=== PATIENT | female | born 1960 | race Caucasian/White ===

== ENCOUNTER 2020-03-22 18:51 | Inpatient (IN) | payer MEDICARE, OTHER ==
[2020-03-22] MEDS ORDERED: ONDANSETRON 4 MG/2 ML VIAL IVP STA (19:25)
--- NOTE | 2020-03-22 19:29 | ED ---
Seizure HPI <Colten Mae - Last Filed: 03/22/20 22:10> - General Source: patient Mode of arrival: ambulatory Limitations: no limitations <Duke Lockwood - Last Filed: 03/22/20 23:59> - General Chief Complaint: Seizure Stated Complaint: seizure Time Seen by Provider: 03/22/20 19:16 - History of Present Illness Initial Comments: 59-year-old female with history of epilepsy presenting to the emergency department the chief complaint of a seizure. Patient states she takes Keppra for seizures and has been taking them regularly, as prescribed. He states today she was at her friend's house when she developed a tonic-clonic seizure of unknown time. Patient did have a postictal state but no biting of the tongue or urinary incontinence. EMS was contacted and patient was brought to the ED. Laron wallace states it is typical for her to have nausea after having seizures. She did have one episode of vomiting in the ED. Patient believes she had a seizure because she has not been taking her amlodipine. Patient states she has not had imaging of the head in quite some time. (Duke Lockwood) - Related Data Home Medications Medication Instructions Recorded Confirmed amLODIPine [Norvasc] 10 mg PO DAILY 12/19/15 03/22/20 levETIRAcetam [Keppra] 500 mg PO Q12H 12/19/15 03/22/20 Naproxen Sodium [Aleve] 440 mg PO DAILY 03/22/20 03/22/20 Allergies Allergy/AdvReac Type Severity Reaction Status Date / Time No Known Allergies Allergy Verified 03/22/20 19:19 Review of Systems ROS Other: All systems not noted in ROS Statement are negative. <Colten Mae - Last Filed: 03/22/20 22:10> ROS Other: All systems not noted in ROS Statement are negative. <Duke Lockwood - Last Filed: 03/22/20 23:59> ROS Statement: Those systems with pertinent positive or pertinent negative responses have been documented in the HPI. Past Medical History Past Medical History: Hyperlipidemia, Hypertension, Seizure Disorder Additional Past Medical History / Comment(s): COUPLE YEARS AGO HAD ? SEIZURE BUT WAS NEVER STARTED ON ANY MEDS History of Any Multi-Drug Resistant Organisms: None Reported Past Surgical History: No Surgical Hx Reported Additional Past Anesthesia/Blood Transfusion Reaction / Comment(s): HAD AA WHEN TEETH PULLED- DENIES ANY PROBLEM WITH AA. Past Psychological History: No Psychological Hx Reported Smoking Status: Never smoker Past Alcohol Use History: None Reported Past Drug Use History: None Reported - Past Family History Father Family Medical History: Hypertension, Prostate Disorder Mother Family Medical History: Unable to Obtain <Duke Lockwood - Last Filed: 03/22/20 23:59> General Exam Limitations: no limitations General appearance: alert, in no apparent distress, obese Head exam: Present: atraumatic, normocephalic, normal inspection Eye exam: Present: normal appearance, PERRL, EOMI Pupils: Present: normal accommodation ENT exam: Present: normal exam, normal oropharynx, mucous membranes moist, TM's normal bilaterally, normal external ear exam Neck exam: Present: normal inspection, full ROM. Absent: tenderness Respiratory exam: Present: normal lung sounds bilaterally. Absent: respiratory distress, wheezes, rales Cardiovascular Exam: Present: regular rate, normal rhythm, normal heart sounds. Absent: systolic murmur, diastolic murmur Extremities exam: Present: normal inspection, full ROM, normal capillary refill. Absent: tenderness, pedal edema, joint swelling, calf tenderness Back exam: Present: normal inspection, full ROM. Absent: tenderness, CVA tenderness (R), CVA tenderness (L) Neurological exam: Present: alert, oriented X3 Psychiatric exam: Present: normal affect, normal mood Skin exam: Present: warm, dry, intact, normal color <Duke Lockwood - Last Filed: 03/22/20 23:59> Course Vital Signs 03/22/20 03/22/20 03/22/20 19:05 20:53 21:00 Temperature 97.9 F Pulse Rate 94 97 105 H Respiratory 18 22 20 Rate Blood Pressure 160/87 189/95 181/88 O2 Sat by Pulse 98 98 98 Oximetry 03/22/20 03/22/20 03/22/20 21:30 22:18 23:00 Temperature 98.0 F Pulse Rate 97 88 92 Respiratory 22 18 20 Rate Blood Pressure 143/82 123/78 148/67 O2 Sat by Pulse 99 98 97 Oximetry Medical Decision Making - Lab Data Result diagrams: 03/22/20 19:38 03/22/20 19:38 <Colten Mae - Last Filed: 03/22/20 22:10> - Lab Data Result diagrams: 03/22/20 19:38 03/22/20 19:38 <Duke Lockwood - Last Filed: 03/22/20 23:59> - Medical Decision Making PA attestation: I, Dr. Colten Mae, personally saw and examined the patient. I have reviewed and agree with the resident/PA findings, including all diagn ostic interpretations and treatment plans as written unless otherwise stated. I was present for the leon portions of any procedures performed and inclusive time noted for any critical care statement. Patient was seen along with Duke Lockwood. Patient 59-year-old female takes Keppra for seizures. Patient has been having breakthrough seizures is unclear what is causing patient to have breakthrough seizures. Patient had a seizure while being rolled back from CT. This is her second seizure today. Clinical presentation concerning for status epilepticus. Case is discussed with Dr. Serrano, low vision therapist neurologist who requests that patient be monitored in the emergency department for 2-3 hours. He request that patient has not returned to baseline within this time that she should be sent to higher level of care because she will likely need 24 hour EEG for status epilepticus and prolonged postictal state. If she does return to baseline and doesn't have any recurrent seizures that she is able to be admitted. He recommended recommends increasing her Keppra dose of 750 mg twice a day. (Colten Mae) Patient had last seizure at 2042 lasting about 3 minutes. Patient was given 1 mg of IV Ativan and 1 g of Keppra. Patient had a postictal state and returned to baseline in about 2 hours. Patient is AO 4. Per 's request, the patient will be admitted and have the Keppra dose increased to 750 mg twice a day. Case discussed with . Dr Harp admission Dr serrano on consult Dr Stacy ordered placement but not involved in patient care. (Duke Lockwood) - Lab Data Lab Results 03/22/20 03/22/20 03/22/20 Range/Units 19:38 19:38 19:38 WBC 8.4 (3.8-10.6) k/uL RBC 5.34 (3.80-5.40) m/uL Hgb 16.2 H (11.4-16.0) gm/dL Hct 46.9 H (34.0-46.0) % MCV 88.0 (80.0-100.0) fL MCH 30.3 (25.0-35.0) pg MCHC 34.4 (31.0-37.0) g/dL RDW 13.0 (11.5-15.5) % Plt Count 274 (150-450) k/uL MPV 6.4 Neutrophils % 73 % Lymphocytes % 17 % Monocytes % 3 % Eosinophils % 3 % Basophils % 2 % Neutrophils # 6.2 (1.3-7.7) k/uL Lymphocytes # 1.4 (1.0-4.8) k/uL Monocytes # 0.3 (0-1.0) k/uL Eosinophils # 0.3 (0-0.7) k/uL Basophils # 0.1 (0-0.2) k/uL Sodium 138 (137-145) mmol/L Potassium 4.1 (3.5-5.1) mmol/L Chloride 108 H (98-107) mmol/L Carbon Dioxide 20 L (22-30) mmol/L Anion Gap 10 mmol/L BUN 14 (7-17) mg/dL Creatinine 0.80 (0.52-1.04) mg/dL Est GFR (CKD-EPI)AfAm >90 (>60 ml/min/1.73 sqM) Est GFR (CKD-EPI)NonAf 81 (>60 ml/min/1.73 sqM) Glucose 128 H (74-99) mg/dL Lactic Ac Sepsis Rflx Plasma Lactic Acid Gabriel 3.8 H* (0.7-2.0) mmol/L Calcium 10.0 (8.4-10.2) mg/dL Total Bilirubin 0.4 (0.2-1.3) mg/dL AST 30 (14-36) U/L ALT 22 (4-34) U/L Alkaline Phosphatase 78 (38-126) U/L Total Protein 8.0 (6.3-8.2) g/dL Albumin 4.7 (3.5-5.0) g/dL 12/10/20 12/10/20 Range/Units 20:25 22:35 WBC (3.8-10.6) k/uL RBC (3.80-5.40) m/uL Hgb (11.4-16.0) gm/dL Hct (34.0-46.0) % MCV (80.0-100.0) fL MCH (25.0-35.0) pg MCHC (31.0-37.0) g/dL RDW (11.5-15.5) % Plt Count (150-450) k/uL MPV Neutrophils % % Lymphocytes % % Monocytes % % Eosinophils % % Basophils % % Neutrophils # (1.3-7.7) k/uL Lymphocytes # (1.0-4.8) k/uL Monocytes # (0-1.0) k/uL Eosinophils # (0-0.7) k/uL Basophils # (0-0.2) k/uL Sodium (137-145) mmol/L Potassium (3.5-5.1) mmol/L Chloride (98-107) mmol/L Carbon Dioxide (22-30) mmol/L Anion Gap mmol/L BUN (7-17) mg/dL Creatinine (0.52-1.04) mg/dL Est GFR (CKD-EPI)AfAm (>60 ml/min/1.73 sqM) Est GFR (CKD-EPI)NonAf (>60 ml/min/1.73 sqM) Glucose (74-99) mg/dL Lactic Ac Sepsis Rflx Y Plasma Lactic Acid Gabriel 2.5 H* (0.7-2.0) mmol/L Calcium (8.4-10.2) mg/dL Total Bilirubin (0.2-1.3) mg/dL AST (14-36) U/L ALT (4-34) U/L Alkaline Phosphatase (38-126) U/L Total Protein (6.3-8.2) g/dL Albumin (3.5-5.0) g/dL Disposition <Colten Mae - Last Filed: 03/22/20 22:10> Is patient prescribed a controlled substance at d/c from ED?: No Time of Disposition: 23:57 <Duke Lockwood - Last Filed: 03/22/20 23:59> Clinical Impression: Breakthrough seizure Disposition: ADMITTED IP TO THIS HOSP Condition: Good Referrals: Mervin Camarena MD [Primary Care Provider] - 1-2 days
[2020-03-22 20:01] LABS: Basophils # (A) 0.1 k/uL (0-0.2); Basophils % (A) 2 %; Eosinophils # (A) 0.3 k/uL (0-0.7); Eosinophils % (A) 3 %; HCT 46.9 % (34.0-46.0); HGB 16.2 gm/dL (11.4-16.0); Lymphocytes # (A) 1.4 k/uL (1.0-4.8); Lymphocytes % (A) 17 %; MCH 30.3 pg (25.0-35.0); MCHC 34.4 g/dL (31.0-37.0); Mean Platelet Volume 6.4; Monocytes # (A) 0.3 k/uL (0-1.0); Monocytes % (A) 3 %; Neutrophils # (A) 6.2 k/uL (1.3-7.7); Neutrophils % (A) 73 %; Platelet Count 274 k/uL (150-450); RBC 5.34 m/uL (3.80-5.40); WBC 8.4 k/uL (3.8-10.6)
[2020-03-22 20:10] LABS: ALT 22 U/L (4-34); AST 30 U/L (14-36); African American GFR (CKD) >90 (>60 ml/min/1.73 sqM); Albumin 4.7 g/dL (3.5-5.0); Alkaline Phosphatase 78 U/L (38-126); Anion Gap 10 mmol/L; Blood Urea Nitrogen 14 mg/dL (7-17); Carbon Dioxide 20 mmol/L (22-30); Chloride 108 mmol/L (98-107); Glucose 128 mg/dL (74-99); Non-African American GFR(CKD) 81 (>60 ml/min/1.73 sqM); Potassium 4.1 mmol/L (3.5-5.1); Sodium 138 mmol/L (137-145); Total Bilirubin 0.4 mg/dL (0.2-1.3)
[2020-03-22] MEDS ORDERED: SODIUM CHLORIDE 0.9% 1,000 ML IV STA (20:27)
[2020-03-22] MEDS ORDERED: diphenhydrAMINE 50 MG/ML 1 ML VIAL IVP STA (20:33)
[2020-03-22] MEDS ORDERED: METOCLOPRAMIDE 5 MG/ML 2 ML VIAL IVP STA (20:33)
[2020-03-22] MEDS ORDERED: levETIRAcetam IV 1,000 MG in SALINE 1 100ML.BAG IVPB STA (20:54)
[2020-03-22] MEDS ORDERED: LORazepam 2 MG/ML INJ IV STA (20:57)
--- NOTE | 2020-03-22 21:36 | CT ---
EXAMINATION TYPE: CT brain cspine wo con DATE OF EXAM: 03/22/2020 COMPARISON: 03/06/2014 HISTORY: Seizure, head injury, pain CT DLP: 1376.6 mGycm Automated exposure control for dose reduction was used. TECHNIQUE: CT scan of the head and cervical spine are performed without contrast. FINDINGS: There is no acute intracranial hemorrhage, mass effect, or midline shift identified. No d efinite acute attenuation defect. However, scattered bilateral low attenuation is noted within the co alexandro radiata and centrum semiovale, nonspecific finding seen on the prior study usually reflecting sm all vessel ischemic change. The ventricles and sulci are within normal limits in size. The globes are intact and the visualized sinuses are clear. Cervical spine is visualized in its entirety from C1 through upper thoracic levels and demonstrates s atisfactory alignment without evidence of acute fracture or dislocation. Prevertebral soft tissue ap pears within normal limits. The C1-C2 articulation is unremarkable. IMPRESSION: 1. There is no acute fracture or dislocation evident in the cervical spine. 2. No acute intracranial hemorrhage, mass effect, or midline shift is seen.
[2020-03-23] MEDS ORDERED: ACETAMINOPHEN TAB 325 MG TAB PO PRN (00:31)
[2020-03-23] MEDS ORDERED: HYDROmorphone 0.5 MG/0.5 ML SYRINGE IVP PRN (00:31)
[2020-03-23] MEDS ORDERED: NALOXONE 0.4 MG/ML 1 ML VIAL IV PRN (00:31)
[2020-03-23] MEDS ORDERED: IBUPROFEN 400 MG TAB PO PRN (00:31)
[2020-03-23] MEDS ORDERED: MORPHINE SULFATE 4 MG/ML SYRINGE IV PRN (00:31)
[2020-03-23] MEDS ORDERED: SODIUM CHLORIDE 0.9% 1,000 ML IV SCH (00:45)
--- NOTE | 2020-03-23 02:15 | XR ---
EXAM: XR Chest, 2 Views CLINICAL HISTORY: ITS.REASON XR Reason: seizure TECHNIQUE: Frontal and lateral views of the chest. COMPARISON: 03/06/14. FINDINGS: Lungs: Mild interstitial prominence and lower lung opacities. Pleural space: Trace pleural effusions not excluded. Heart: Stable cardiomediastinal silhouette. Mediastinum: See above. Bones/joints: No acute fracture. IMPRESSION: Mild interstitial prominence and lower lung opacities. Correlate clinically regarding infection or edema.
[2020-03-23 05:35] VITALS: BP 126/76; PULSE 84; RESP 17; TEMP 98.1
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
[2020-03-23] MEDS ORDERED: levETIRAcetam IV 750 MG in SODIUM CHLORIDE 0.9% 100 ML IVPB SCH (10:00)
--- NOTE | 2020-03-23 11:09 | P.HPIM ---
History of Present Illness H&P Date: 03/23/20 Chief Complaint: seiures PATIENT LEFT AMA PRIOR TO EVALUATION Past Medical History Past Medical History: Hyperlipidemia, Hypertension, Seizure Disorder Additional Past Medical History / Comment(s): COUPLE YEARS AGO HAD ? SEIZURE BUT WAS NEVER STARTED ON ANY MEDS History of Any Multi-Drug Resistant Organisms: None Reported Past Surgical History: No Surgical Hx Reported Additional Past Anesthesia/Blood Transfusion Reaction / Comment(s): HAD AA WHEN TEETH PULLED- DENIES ANY PROBLEM WITH AA. Past Psychological History: No Psychological Hx Reported Smoking Status: Never smoker Past Alcohol Use History: None Reported Past Drug Use History: None Reported - Past Family History Father Family Medical History: Hypertension, Prostate Disorder Mother Family Medical History: Unable to Obtain Medications and Allergies Home Medications Medication Instructions Recorded Confirmed Type amLODIPine [Norvasc] 10 mg PO DAILY 12/19/15 03/22/20 History levETIRAcetam [Keppra] 500 mg PO Q12H 12/19/15 03/22/20 History Naproxen Sodium [Aleve] 440 mg PO DAILY 03/22/20 03/22/20 History levETIRAcetam [Keppra] 750 mg PO Q12HR 30 Days #60 tab 03/23/20 Rx Allergies Allergy/AdvReac Type Severity Reaction Status Date / Time No Known Allergies Allergy Verified 03/22/20 19:19 Physical Exam Vitals: Vital Signs Temp Pulse Resp BP Pulse Ox 03/23/20 05:00 98.1 F 84 17 126/76 95 03/23/20 01:00 82 16 133/66 99 03/23/20 00:18 77 18 112/68 98 03/23/20 00:00 79 16 113/82 96 03/22/20 23:00 98.0 F 105 H 19 162/79 98 03/22/20 22:18 88 18 123/78 98 03/22/20 22:00 110 H 20 141/88 96 03/22/20 21:30 97 22 143/82 99 03/22/20 21:00 106 H 18 189/95 95 03/22/20 20:53 97 22 189/95 98 03/22/20 20:00 99 20 160/97 95 03/22/20 19:05 97.9 F 94 18 160/87 98 03/22/20 19:00 102 H 96 03/22/20 18:56 96 Intake and Output 03/22/20 03/23/20 03/23/20 22:59 06:59 14:59 Output Total 400 Balance -400 Output: Urine 400 Other: Weight 79.379 kg Results CBC & Chem 7: 03/22/20 19:38 03/22/20 19:38 Labs: Abnormal Lab Results - Last 24 Hours (Table) 03/22/20 03/22/20 03/22/20 Range/Units 19:38 19:38 19:38 Hgb 16.2 H (11.4-16.0) gm/dL Hct 46.9 H (34.0-46.0) % Chloride 108 H (98-107) mmol/L Carbon Dioxide 20 L (22-30) mmol/L Glucose 128 H (74-99) mg/dL Plasma Lactic Acid Gabriel 3.8 H* (0.7-2.0) mmol/L 03/22/20 Range/Units 22:35 Hgb (11.4-16.0) gm/dL Hct (34.0-46.0) % Chloride (98-107) mmol/L Carbon Dioxide (22-30) mmol/L Glucose (74-99) mg/dL Plasma Lactic Acid Gabriel 2.5 H* (0.7-2.0) mmol/L
--- NOTE | 2020-03-23 11:09 | P.DS ---
Providers Date of admission: 03/23/20 00:06 Expected date of discharge: 03/23/20 Attending physician: Gina Harp MD Consults: 03/23/20 00:31 Consult Physician Stat Consulting Provider: Ulises Serrano Consult Reason/Comments: Breakthrough seizures Do you want consulting provider notified?: Yes Primary care physician: Nicol Jeffries [facility] Course: PATIENT LEFT AMA PRIOR TO EVALUATION Patient Condition at Discharge: Good Plan - Discharge Summary New Discharge Prescriptions: New levETIRAcetam [Keppra] 750 mg PO Q12HR 30 Days #60 tab No Action amLODIPine [Norvasc] 10 mg PO DAILY levETIRAcetam [Keppra] 500 mg PO Q12H Naproxen Sodium [Aleve] 440 mg PO DAILY Discharge Medication List amLODIPine [Norvasc] 10 mg PO DAILY 12/19/15 [History] levETIRAcetam [Keppra] 500 mg PO Q12H 12/19/15 [History] Naproxen Sodium [Aleve] 440 mg PO DAILY 03/22/20 [History] levETIRAcetam [Keppra] 750 mg PO Q12HR 30 Days #60 tab 03/23/20 [Rx] Follow up Appointment(s)/Referral(s): Mervin Camarena MD [Primary Care Provider] - 1-2 days Discharge Disposition: Left Against Medical Advice
== END 2020-03-23 09:53 | disposition left against medical advice (07) | DRG 101 ==
LOC: EC 18:51 → 5NMEDONC 03-23 00:06
PROVIDERS: ADMIT Internal Medicine; ATTEND Internal Medicine
DX: G40.909 Epilepsy, unspecified, not intractable, without status epilepticus (principal); E78.5 Hyperlipidemia, unspecified; F17.210 Nicotine dependence, cigarettes, uncomplicated; I10 Essential (primary) hypertension; R32 Unspecified urinary incontinence; Z79.899 Other long term (current) drug therapy; Z82.49 Family history of ischemic heart disease and other diseases of the circulatory system; Z87.820 Personal history of traumatic brain injury
CPT/HCPCS: 36415; 70450; 71046; 72125; 80053; 80177; 83605; 85025; 93005; 96361; 96365; 96375; 99285